=== PATIENT | female | born 1940 | race Caucasian/White ===

== ENCOUNTER 2018-01-06 05:15 | Day surgery (SDC) | payer MEDICARE, OTHER ==
[~2018-01-06] VITALS: Ht 160 cm; Wt 65.0 kg
[2018-01-06] VITALS (7 sets, daily range): BP systolic 113–165; BP diastolic 53–70; PULSE 56–69; TEMP 97.6–98.3
[2018-01-06] MEDS ORDERED: LIPITOR 10MG10 MG PO (05:47)
[2018-01-06] MEDS ORDERED: BONIVA150 MG PO (05:47)
[2018-01-06] MEDS ORDERED: CALCIUM 600/VIT1 CAP PO (05:48)
[2018-01-06] MEDS ORDERED: B-121000 MCG PO (05:48)
[2018-01-06] MEDS ORDERED: PRILOSEC 20MG20 MG PO (05:48)
[2018-01-06] MEDS ORDERED: PHENERGAN 25 TA25 MG PO (08:42)
[2018-01-06] MEDS ORDERED: NORCO 325 MG-7.1 TAB PO (08:42)
[2018-01-06] MEDS ORDERED: CEPHALEXIN500 M1 PO (08:43)
== END 2018-01-06 11:40 | disposition home or self-care (01) ==
LOC: SDCO 05:15
DX: S82.092A Other fracture of left patella, initial encounter for closed fracture (principal); S52.135A Nondisplaced fracture of neck of left radius, initial encounter for closed fracture; E78.00 Pure hypercholesterolemia, unspecified; K21.9 Gastro-esophageal reflux disease without esophagitis; M81.0 Age-related osteoporosis without current pathological fracture
CPT/HCPCS: C1713; J0690; J2250; J2405; J2704; J2795; J3010; J7120